=== PATIENT | female | born 2000 | race African-American/Black ===

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

== ENCOUNTER 2022-08-26 10:29 | Emergency (ER) | payer OTHER ==
[~2022-08-26] VITALS: Ht 165.1 cm; Wt 84.1 kg
[2022-08-26 10:30] VITALS: BP 137/81
[2022-08-26] MEDS ORDERED: LEXA1TAB PO (11:24)
[2022-08-26] MEDS ORDERED: MELO10CA2 PO (14:54)
== END 2022-08-26 15:35 | disposition home or self-care (01) ==
LOC: M ED 10:29
DX: M25.552 Pain in left hip (principal); F32.9 Major depressive disorder, single episode, unspecified